=== PATIENT | female | born 1985 | race Caucasian/White ===

== ENCOUNTER 2017-10-01 11:34 | Emergency (ER) | payer OTHER ==
[2017-10-01 12:24] LABS: Urine Blood NEGATIVE (NEG); Urine Glucose NEGATIVE (NEG); Urine Protein NEGATIVE (NEG); Urine Specific Gravity 1.025 (1.005-1.030)
[2017-10-01] MEDS ORDERED: LORazepam 2 MG/ML VIAL ONE (13:11)
[2017-10-01 13:23] LABS: Absolute Lymphocytes (CBC) 1.7 K/uL (0.7-4.9); Absolute Monocytes 0.4 K/uL (0.1-1.3); Absolute Neutrophil 3.7 K/uL (1.8-8.0); Basophils % 0.5 % (0-1.3); Hematocrit 38.7 % (36.0-45.0); Lymphocytes % 28.9 % (15.3-44.8); MCH 29.6 pg (27.0-35.0); MPV 7.1 fL (7.6-11.3); Monocytes % 6.6 % (3.3-12.3); RBC Red Blood Cell Count 4.35 M/uL (3.86-4.86)
--- NOTE | 2017-10-01 13:29 | RAD REPORT ---
EXAM DESCRIPTION: CT - Head Brain Wo Cont - 10/01/2017 1:18 pm CLINICAL HISTORY: Headache, dizziness, intermittent vision loss, history of seizures COMPARISON: CT head June 2012 TECHNIQUE: Axial 5 mm thick images of the head were obtained without IV contrast. All CT scans are performed using dose optimization technique as appropriate and may include automated exposure control or mA/KV adjustment according to patient size. FINDINGS: No intracranial hemorrhage, mass, edema or shift of mid-line structures. No acute infarcti on changes seen. No abnormal extra-axial fluid collections. Ventricles are normal. Intracranial findi ngs are similar to comparison. Mastoid air cells and visualized portions of the paranasal sinuses are clear. No acute bony findings. IMPRESSION: Negative CT head examination for acute finding. No significant change from 2012.
[2017-10-01 13:32] LABS: Protime INR 0.9
[2017-10-01 13:43] LABS: Bicarbonate 24 mEq/L (21-31); Glucose Level 89 mg/dL (65-120); Potassium 3.8 mEq/L (3.6-5.0); Sodium Level 136 mEq/L (135-145)
[2017-10-01 13:48] LABS: ALT/SGPT 30 IU/L (10-60); AST/SGOT 23 IU/L (10-42); Albumin 3.6 g/dL (3.2-5.5); Alkaline Phosphatase 91 IU/L (42-121); BUN Blood Urea Nitrogen 12 mg/dL (6-20); Bilirubin Total < 0.2 mg/dL (0.3-1.2); CKMB Creatine Kinase MB 1.7 ng/ml (0.3-4.0); Creatine Phosphokinase 50 IU/L (22-269); Magnesium 1.9 mg/dL (1.8-2.5); Protein, Total 7.1 g/dL (6.0-8.3)
[2017-10-01 13:50] LABS: Bilirubin Direct < 0.1 mg/dL (0-0.2); C-Reactive Protein 8.8 mg/L (<10.0)
--- NOTE | 2017-10-01 13:59 | RAD REPORT ---
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 Axial DWI and ADC mapping sequences were also obtained along with coronal heavily T2-w eighted images. FINDINGS: No intracranial hemorrhage, mass or acute infarction. There is no edema or shift of midlin e structures. No cortical contusion or shear injury. Ventricles are normal. Rubi-matter/white matter junction is preserved. Signal voids are seen as a normal finding in the major intracranial vessels. No globe or orbital content abnormality identifiable. Frontal scalp hematoma seen in July has resolv ed. Mastoid air cells and paranasal sinuses are clear. IMPRESSION: Negative noncontrast MRI of the brain for acute finding. No significant or suspicious change from the July MRI study.
[2017-10-01 14:04] LABS: Barbiturates NEGATIVE; Benzodiazepines NEGATIVE; Cocaine NEGATIVE; METHAMPHETAM NEGATIVE (NEGATIVE); Opiates NEGATIVE; Phencyclidine NEGATIVE; THC Cannibis NEGATIVE
[2017-10-01] MEDS ORDERED: NA CHLORIDE 0.9% 1,000 ML ONE (14:09)
[2017-10-01 14:13] LABS: Alcohol Serum/Plasma < 10 mg/dl
--- NOTE | 2017-10-01 14:19 | RAD REPORT ---
EXAM DESCRIPTION: RAD - Chest Single View - 10/01/2017 2:02 pm CLINICAL HISTORY: Headache, dizziness, intermittent visual changes, seizure COMPARISON: July 2017 TECHNIQUE: AP portable chest image was obtained 1347 hours . FINDINGS: The Heart and vasculature are normal. No measurable pleural effusion and no pneumothorax. No gross bony abnormality seen. No acute aortic findings suspected. IMPRESSION: No acute cardiopulmonary process.
--- NOTE | 2017-10-01 14:26 | ER ---
Nurse's Notes [facility] Name: Cece Bush Age: 31 yrs Sex: Female : 1985 Arrival Date: 10/01/2017 Time: 11:38 Bed 18 Private MD: None, None Diagnosis: Visual disturbances Presentation: 10/01 11:44 Presenting complaint: Patient states: Intermittent loss of vision, headache, and hb dizziness x 2 weeks. Hx seizures, head injury July 2017. Transition of care: patient was not received from another setting of care. Onset of symptoms is unknown. Care prior to arrival: None. 11:44 Method Of Arrival: Ambulatory hb 11:44 Acuity: YAAKOV 3 hb 14:30 Risk Assessment: Do you want to hurt yourself or someone else? Patient reports no ch desire to harm self or others. Initial Sepsis Screen: Does the patient meet any 2 criteria? No. Patient's initial sepsis screen is negative. Does the patient have a suspected source of infection? No. Patient's initial sepsis screen is negative. Triage Assessment: 14:30 General: Appears in no apparent distress. comfortable, Behavior is calm, cooperative, ch appropriate for age. Historical: - Allergies: 11:48 Morphine; hb 11:48 tramadol; hb - Home Meds: 11:48 Suboxone [Active]; unknown seizure medication [Active]; hb - PMHx: 11:48 Depression; PTSD; Seizures; hb - PSHx: 11:48 Unable to obtain; L femur; hb - Immunization history:: Adult Immunizations up to date. - Social history:: Smoking status: Patient uses tobacco products, smokes one pack cigarettes per day. - Ebola Screening: : No symptoms or risks identified at this time. - Family history:: pertinent for. Screenin:21 Abuse screen: Denies threats or abuse. Denies injuries from another. Nutritional ch screening: No deficits noted. Tuberculosis screening: No symptoms or risk factors identified. Fall Risk None identified. Assessment: 13:21 General: Appears in no apparent distress. comfortable, Behavior is calm, cooperative, ch appropriate for age, pt transported to MRI. will do a comprehensive assessment upon return . Pain: Denies pain. Neuro: No deficits noted. Level of Consciousness is awake, alert, obeys commands, Oriented to person, place, time, situation, pt reports intermittant blackness and black spot in her vision . Respiratory: Airway is patent Respiratory effort is even, unlabored. Derm: Skin is pink, warm \T\ dry. 14:27 Reassessment: Patient appears in no apparent distress at this time. Patient and/or ss family updated on plan of care and expected duration. Pain level reassessed. Patient is alert, oriented x 3, equal unlabored respirations, skin warm/dry/pink. Respiratory: No deficits noted. Airway is patent Respiratory effort is even, unlabored. GI: No signs and/or symptoms were reported involving the gastrointestinal system. : No signs and/or symptoms were reported regarding the genitourinary system. Musculoskeletal: No signs and/or symptoms reported regarding the musculoskeletal system. Circulation, motion, and sensation intact. Vital Signs: 11:48 BP 135 / 97; Pulse 100; Resp 16; Temp 98.2; Pulse Ox 97% on R/A; Weight 77.11 kg; hb Height 5 ft. 2 in. (157.48 cm); Pain 4/10; 14:27 BP 111 / 72; Pulse 72; Resp 14; Temp 98.6; Pulse Ox 97% on R/A; Pain 0/10; ss 11:48 Body Mass Index 31.09 (77.11 kg, 157.48 cm) hb ED Course: 11:38 Patient arrived in ED. sb2 11:38 None, None is Private Physician. sb2 11:47 Triage completed. hb 11:49 Arm band placed on left wrist. hb 11:52 Margot Trevino, RN is Primary Nurse. ch 12:08 Urine collected: clean catch specimen, clear. dh3 12:21 Jad Duran MD is Attending Physician. jose 13:10 Radiology exam delayed due to PT GOING TO MRI. mh1 13:16 CT completed. Patient tolerated procedure well. Patient moved to CT via wheelchair. sj Patient moved to MRI Patient moved back from CT. 13:17 CT Head Brain wo Cont In Process Unspecified. EDMS 13:21 Patient has correct armband on for positive identification. Placed in gown. Bed in low ch position. Call light in reach. Side rails up X 1. Adult w/ patient. clinical research monitor on. Pulse ox on. NIBP on. 13:21 No provider procedures requiring assistance completed. Inserted saline lock: 20 gauge ch in right forearm, using aseptic technique. Blood collected. 13:22 Brain Wo Cont MRI In Process Unspecified. EDMS 13:35 MRI completed. Patient tolerated well. em2 13:38 Patient moved to radiology via wheelchair. ka 13:51 X-ray completed. Patient tolerated procedure well. Patient moved to radiology via mh1 wheelchair. Patient moved back from radiology. 13:53 XRAY Chest (1 view) In Process Unspecified. EDAL 14:25 Mickey Willard MD is Referral Physician. [facility] 14:25 Naveen Contreras MD is Referral Physician. [facility] 19:31 IV discontinued, intact, bleeding controlled, No redness/swelling at site. Pressure ch dressing applied. Administered Medications: 13:10 Drug: Ativan 1 mg Route: IVP; Site: right forearm; 14:24 Follow up: Response: No adverse reaction; Marked relief of symptoms 14:00 Drug: NS 0.9% 1000 ml Route: IV; Rate: 1 bolus; Site: right forearm; Outcome: 14:25 Discharge ordered by . [facility] 14:50 Discharged to home ambulatory, with family. 14:50 Condition: stable 14:50 Discharge instructions given to patient, family, Instructed on discharge instructions, follow up and referral plans. Demonstrated understanding of instructions, follow-up care. 14:55 Patient left the ED. Signatures: Dispatcher [employer] Margot Myles, RN Jad Wilkes ch, MD MD cha Harvey, Martha mh1 Berenice Aguayo Shelby, RN RN Adam Baldwin em2 Estefanía Solis Heather, RN RN hb Herrera, Deanna 3 Darcy Levi 2
--- NOTE | 2017-10-01 14:26 | EDPHYS ---
Physician Documentation [facility] Name: Cece Bush Age: 31 yrs Sex: Female : 1985 Arrival Date: 10/01/2017 Time: 11:38 Bed 18 Private MD: None, None ED Physician Jad Duran HPI: 10/01 12:54 This 31 yrs old Female presents to ER via Ambulatory with complaints of jose Losing Eyesight. 12:54 The patient is experiencing blurred vision, decreased vision. Onset: The jose symptoms/episode began/occurred 1 month(s) ago. Duration: the symptoms are intermittent. Aggravated by nothing. Alleviated by nothing. Associated signs and symptoms: Pertinent positives: None. Pertinent negatives: None. Severity of symptoms: At their worst the symptoms were moderate in the emergency department the symptoms are unchanged. Historical: - Allergies: 11:48 Morphine; hb 11:48 tramadol; hb - Home Meds: 11:48 Suboxone [Active]; unknown seizure medication [Active]; hb - PMHx: 11:48 Depression; PTSD; Seizures; hb - PSHx: 11:48 Unable to obtain; L femur; hb - Immunization history:: Adult Immunizations up to date. - Social history:: Smoking status: Patient uses tobacco products, smokes one pack cigarettes per day. - Ebola Screening: : No symptoms or risks identified at this time. - Family history:: pertinent for. ROS: 12:54 Constitutional: Negative for fever, chills, and weight loss, ENT: Negative for injury, jose pain, and discharge, Neck: Negative for injury, pain, and swelling, Cardiovascular: Negative for chest pain, palpitations, and edema, Respiratory: Negative for shortness of breath, cough, wheezing, and pleuritic chest pain, Abdomen/GI: Negative for abdominal pain, nausea, vomiting, diarrhea, and constipation, Back: Negative for injury and pain, : Negative for injury, bleeding, discharge, and swelling, MS/Extremity: Negative for injury and deformity, Skin: Negative for injury, rash, and discoloration, Neuro: Negative for headache, weakness, numbness, tingling, and seizure, Psych: Negative for depression, anxiety, suicide ideation, homicidal ideation, and hallucinations, Allergy/Immunology: Negative for hives, rash, and allergies, Endocrine: Negative for neck swelling, polydipsia, polyuria, polyphagia, and marked weight changes, Hematologic/Lymphatic: Negative for swollen nodes, abnormal bleeding, and unusual bruising. 12:54 Eyes: Positive for vision loss, visual disturbance. Exam: 12:54 Constitutional: This is a well developed, well nourished patient who is awake, alert, jose and in no acute distress. Head/Face: Normocephalic, atraumatic. Eyes: Pupils equal round and reactive to light, extra-ocular motions intact. Lids and lashes normal. Conjunctiva and sclera are non-icteric and not injected. Cornea within normal limits. Periorbital areas with no swelling, redness, or edema. ENT: Nares patent. No nasal discharge, no septal abnormalities noted. Tympanic membranes are normal and external auditory canals are clear. Oropharynx with no redness, swelling, or masses, exudates, or evidence of obstruction, uvula midline. Mucous membranes moist. Neck: Trachea midline, no thyromegaly or masses palpated, and no cervical lymphadenopathy. Supple, full range of motion without nuchal rigidity, or vertebral point tenderness. No Meningismus. Chest/axilla: Normal chest wall appearance and motion. Nontender with no deformity. No lesions are appreciated. Cardiovascular: Regular rate and rhythm with a normal S1 and S2. No gallops, murmurs, or rubs. Normal PMI, no JVD. No pulse deficits. Respiratory: Lungs have equal breath sounds bilaterally, clear to auscultation and percussion. No rales, rhonchi or wheezes noted. No increased work of breathing, no retractions or nasal flaring. Abdomen/GI: Soft, non-tender, with normal bowel sounds. No distension or tympany. No guarding or rebound. No evidence of tenderness throughout. Back: No spinal tenderness. No costovertebral tenderness. Full range of motion. Skin: Warm, dry with normal turgor. Normal color with no rashes, no lesions, and no evidence of cellulitis. MS/ Extremity: Pulses equal, no cyanosis. Neurovascular intact. Full, normal range of motion. Neuro: Awake and alert, GCS 15, oriented to person, place, time, and situation. Cranial nerves II-XII grossly intact. Motor strength 5/5 in all extremities. Sensory grossly intact. Cerebellar exam normal. Normal gait. Psych: Awake, alert, with orientation to person, place and time. Behavior, mood, and affect are within normal limits. Vital Signs: 11:48 BP 135 / 97; Pulse 100; Resp 16; Temp 98.2; Pulse Ox 97% on R/A; Weight 77.11 kg; hb Height 5 ft. 2 in. (157.48 cm); Pain 4/10; 14:27 BP 111 / 72; Pulse 72; Resp 14; Temp 98.6; Pulse Ox 97% on R/A; Pain 0/10; ss 11:48 Body Mass Index 31.09 (77.11 kg, 157.48 cm) hb MDM: 12:22 Patient medically screened. [facility] 12:56 Data reviewed: vital signs, nurses notes, lab test result(s), EKG, radiologic studies, [facility] CT scan, MRI, plain films. 10/01 12:12 Order name: Urine Dipstick--Ancillary (enter results); Complete Time: 12:50 ag 10/01 12:12 Order name: Urine --Ancillary (enter results); Complete Time: 12:50 ag 10/01 12:52 Order name: Basic Metabolic Panel; Complete Time: 14:24 [facility] 10/01 12:52 Order name: BNP; Complete Time: 14:24 [facility] 10/01 12:52 Order name: CBC with Diff; Complete Time: 14:24 [facility] 10/01 12:52 Order name: Ckmb; Complete Time: 14:24 [facility] 10/01 12:52 Order name: CPK; Complete Time: 14:24 [facility] 10/01 12:52 Order name: LFT's; Complete Time: 14:24 [facility] 10/01 12:52 Order name: Magnesium; Complete Time: 14:24 [facility] 10/01 12:52 Order name: PT-INR; Complete Time: 14:24 [facility] 10/01 12:52 Order name: Ptt, Activated; Complete Time: 14:24 [facility] 10/01 12:52 Order name: Troponin (emerg Dept Use Only); Complete Time: 14:24 [facility] 10/01 12:52 Order name: Sed Rate; Complete Time: 14:24 [facility] 10/01 12:52 Order name: CRP; Complete Time: 14:24 [facility] 10/01 12:52 Order name: XRAY Chest (1 view); Complete Time: 14:24 [facility] 10/01 12:52 Order name: EKG; Complete Time: 12:53 [facility] 10/01 12:52 Order name: Cardiac monitoring; Complete Time: 14:24 [facility] 10/01 12:52 Order name: EKG - Nurse/Tech; Complete Time: 13:21 [facility] 10/01 12:52 Order name: IV Saline Lock; Complete Time: 13:21 [facility] 10/01 12:52 Order name: Labs collected and sent; Complete Time: 13:21 [facility] 10/01 12:52 Order name: O2 Per Protocol; Complete Time: 13: [facility] 10/01 12:52 Order name: O2 Sat Monitoring; Complete Time: 13:21 [facility] 10/01 12:52 Order name: CT Head Brain wo Cont; Complete Time: 14:24 [facility] 10/01 12:52 Order name: Brain Wo Cont MRI; Complete Time: 14:24 [facility] 10/01 12:53 Order name: Acetaminophen; Complete Time: 14:24 [facility] 10/01 12:53 Order name: ETOH Level; Complete Time: 14:24 [facility] 10/01 12:53 Order name: Salicylate; Complete Time: 14:24 [facility] 10/01 12:53 Order name: Urine Drug Screen; Complete Time: 14:24 [facility] 10/01 12:52 Order name: Urine Dipstick-Ancillary (obtain specimen); Complete Time: 14:24 [facility] Administered Medications: 13:10 Drug: Ativan 1 mg Route: IVP; Site: right forearm; 14:24 Follow up: Response: No adverse reaction; Marked relief of symptoms 14:00 Drug: NS 0.9% 1000 ml Route: IV; Rate: 1 bolus; Site: right forearm; Disposition: 10/01/17 14:25 Discharged to Home. Impression: Visual disturbances. - Condition is Stable. - Discharge Instructions: Eye - Blurred Vision, Visual Disturbances. - Work release form, Medication Reconciliation Form, Thank You Letter, Antibiotic Education, Prescription Opioid Use form. - Follow up: Private Physician; When: 2 - 3 days; Reason: Recheck today's complaints, Continuance of care, Re-evaluation by your physician. Follow up: Mickey Willard; When: 2 - 3 days; Reason: Recheck today's complaints, Re-evaluation by your physician. Follow up: Naveen Contreras; When: 48 Hours; Reason: Recheck today's complaints, Continuance of care, Re-evaluation by your physician. - Problem is new. - Symptoms have improved. Signatures: Dispatcher [employer] EDMargot Johnson, RN RN Jad Ibrahim MD MD cha Smirch, Shelby, RN RN Claire Jama RN RN Corrections: (The following items were deleted from the chart) 14:55 14:25 10/01/2017 14:25 Discharged to Home. Impression: Visual disturbances. Condition ch is Stable. Discharge Instructions: Eye - Blurred Vision, Visual Disturbances. Forms are Medication Reconciliation Form, Thank You Letter, Antibiotic Education, Prescription Opioid Use. Follow up: Private Physician; When: 2 - 3 days; Reason: Recheck today's complaints, Continuance of care, Re-evaluation by your physician. Follow up: Mickey Willard; When: 2 - 3 days; Reason: Recheck today's complaints, Re-evaluation by your physician. Follow up: Naveen Contreras; When: 48 Hours; Reason: Recheck today's complaints, Continuance of care, Re-evaluation by your physician. Problem is new. Symptoms have improved. jose
[2017-10-01 14:59] VITALS: O2SAT 97
--- NOTE | 2017-10-01 14:59 | EKG ---
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
[2017-10-01 15:00] VITALS: BP 111/72; TEMP 98.6
== END 2017-10-01 14:55 | disposition home or self-care (01) ==
LOC: ER 11:34
DX: H53.9 Unspecified visual disturbance (principal); F32.9 Major depressive disorder, single episode, unspecified; F43.10 Post-traumatic stress disorder, unspecified; G40.909 Epilepsy, unspecified, not intractable, without status epilepticus; Z88.5 Allergy status to narcotic agent; Z88.6 Allergy status to analgesic agent
CPT/HCPCS: 36415; 70450; 70551; 71045; 80048; 80076; 80307; 80320; 80329; 81003; 81025; 82550; 82553; 83735; 83880; 84484; 85025; 85610; 85652; 85730; 86140; 93005; 96374; 99285; J7030

== ENCOUNTER 2018-11-16 15:16 | Emergency (ER) | payer OTHER ==
--- NOTE | 2018-11-16 15:37 | ER ---
Nurse's Notes [facility] Name: Cece Bush Age: 33 yrs Sex: Female : 1985 Arrival Date: 11/16/2018 Time: 15:19 Bed 11 Private MD: Diagnosis: Anxiety disorder, unspecified;Patient's unintentional underdosing of medication regimen for other reason Presentation: 11/16 15:23 Presenting complaint: Patient states: I am out of my effexor 75mg daily, its coming in la1 the mail and should be here next week but I have not had it since and I am starting to feel bad. Transition of care: patient was not received from another setting of care. Onset of symptoms was November 16, 2018. Risk Assessment: Do you want to hurt yourself or someone else? Patient reports no desire to harm self or others. Initial Sepsis Screen: Does the patient meet any 2 criteria? No. Patient's initial sepsis screen is negative. Does the patient have a suspected source of infection? No. Patient's initial sepsis screen is negative. Care prior to arrival: None. 15:23 Method Of Arrival: Ambulatory la1 15:23 Acuity: YAAKOV 5 la1 SNUBBER: 15:22 LMP 11/11/2018 la1 Historical: - Allergies: 15:22 Morphine; la1 15:22 tramadol; la1 - PMHx: 15:22 Depression; PTSD; Seizures; la1 - Immunization history:: Adult Immunizations up to date. - Social history:: Smoking status: Patient/guardian denies using tobacco. - Ebola Screening: : No symptoms or risks identified at this time. Screenin:25 Abuse screen: Denies threats or abuse. Nutritional screening: No deficits noted. la1 Tuberculosis screening: No symptoms or risk factors identified. Fall Risk None identified. Assessment: 15:24 Reassessment: Patient is alert, oriented x 3, equal unlabored respirations, skin la1 warm/dry/pink. Pain: Denies pain. GI: No signs and/or symptoms were reported involving the gastrointestinal system. : No signs and/or symptoms were reported regarding the genitourinary system. Vital Signs: 15:22 BP 140 / 93; Pulse 120; Resp 18; Temp 97.6; Pulse Ox 98% on R/A; Weight 74.84 kg; la1 Height 5 ft. 2 in. (157.48 cm); 15:22 Body Mass Index 30.18 (74.84 kg, 157.48 cm) la1 ED Course: 15:19 Patient arrived in ED. as 15:23 Arm band placed on left wrist. la1 15:24 Triage completed. la1 15:24 Emanuel Zapata, RN is Primary Nurse. la1 15:25 Call light in reach. la1 15:25 No provider procedures requiring assistance completed. Patient did not have IV access la1 during this emergency room visit. 15:28 [facility]C [facility] snw 15:28 Rafal Bangura MD is Attending Physician. snw Administered Medications: 15:39 Drug: Ativan 2 mg Route: PO; iw 15:40 Follow up: Response: Medication administered at discharge. iw Outcome: 15:37 Discharge ordered by MD. snw 15:40 Discharged to home ambulatory. iw 15:40 Condition: stable 15:40 Discharge instructions given to patient, Instructed on discharge instructions, follow up and referral plans. medication usage, Demonstrated understanding of instructions, follow-up care, medications, Prescriptions given X 1. 15:40 Patient left the ED. iw Signatures: Coco Muñoz FNP-C FNP-Yolanda Villareal Irene, RN RN iw Emanuel Zapata RN RN la1
--- NOTE | 2018-11-16 15:37 | EDPHYS ---
Physician Documentation [facility] Name: Cece Bush Age: 33 yrs Sex: Female : 1985 Arrival Date: 11/16/2018 Time: 15:19 Bed 11 Private MD: ED Physician Rafal Bangura HPI: 11/16 15:46 This 33 yrs old Female presents to ER via Ambulatory with complaints of snw InQuicker, Medication Refill. 15:46 The patient presents to the emergency department requesting refill(s) for: Effexor. The snw patient chronically suffers from anxiety, PTSD, seizures. The patient has not experienced similar symptoms in the past. The patient has been recently seen by a physician: medications are coming in the mail but pt has been out x 4 days and is afraid she may have seizure activity if she does not get her medications. 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 - Social history:: Smoking status: Patient/guardian denies using tobacco. - Ebola Screening: : No symptoms or risks identified at this time. ROS: 15:46 Eyes: Negative for injury, pain, redness, and discharge, ENT: Negative for injury, snw pain, and discharge, Neck: Negative for injury, pain, and swelling, Cardiovascular: Negative for chest pain, palpitations, and edema, Respiratory: Negative for shortness of breath, cough, wheezing, and pleuritic chest pain, Abdomen/GI: Negative for abdominal pain, nausea, vomiting, diarrhea, and constipation, Back: Negative for injury and pain, : Negative for injury, bleeding, discharge, and swelling, MS/Extremity: Negative for injury and deformity, Skin: Negative for injury, rash, and discoloration, Neuro: Negative for headache, weakness, numbness, tingling, and seizure. 15:46 Constitutional: Positive for anxiety. 15:46 Psych: Positive for anxiety. Exam: 15:45 Head/Face: Normocephalic, atraumatic. Eyes: Pupils equal round and reactive to light, snw extra-ocular motions intact. Lids and lashes normal. Conjunctiva and sclera are non-icteric and not injected. Cornea within normal limits. Periorbital areas with no swelling, redness, or edema. ENT: Nares patent. No nasal discharge, no septal abnormalities noted. Tympanic membranes are normal and external auditory canals are clear. Oropharynx with no redness, swelling, or masses, exudates, or evidence of obstruction, uvula midline. Mucous membranes moist. Neck: Trachea midline, no thyromegaly or masses palpated, and no cervical lymphadenopathy. Supple, full range of motion without nuchal rigidity, or vertebral point tenderness. No Meningismus. Chest/axilla: Normal chest wall appearance and motion. Nontender with no deformity. No lesions are appreciated. 15:45 Respiratory: Lungs have equal breath sounds bilaterally, clear to auscultation and percussion. No rales, rhonchi or wheezes noted. No increased work of breathing, no retractions or nasal flaring. Abdomen/GI: Soft, non-tender, with normal bowel sounds. No distension or tympany. No guarding or rebound. No evidence of tenderness throughout. Back: No spinal tenderness. No costovertebral tenderness. Full range of motion. Skin: Warm, dry with normal turgor. Normal color with no rashes, no lesions, and no evidence of cellulitis. MS/ Extremity: Pulses equal, no cyanosis. Neurovascular intact. Full, normal range of motion. Neuro: Awake and alert, GCS 15, oriented to person, place, time, and situation. Cranial nerves II-XII grossly intact. Motor strength 5/5 in all extremities. Sensory grossly intact. Cerebellar exam normal. Normal gait. 15:45 Constitutional: The patient appears alert, awake, anxious, mildly tremulous 15:45 Cardiovascular: Rate: tachycardic, Rhythm: regular, Heart sounds: normal. 15:45 Psych: Behavior/mood is pleasant, cooperative, anxious, Affect is animated, Oriented to person, place, time, Patient has no thoughts/intents to harm self or others. Vital Signs: 15:22 BP 140 / 93; Pulse 120; Resp 18; Temp 97.6; Pulse Ox 98% on R/A; Weight 74.84 kg; la1 Height 5 ft. 2 in. (157.48 cm); 15:22 Body Mass Index 30.18 (74.84 kg, 157.48 cm) la1 MDM: 15:28 Patient medically screened. snw 15:44 Data reviewed: vital signs, nurses notes. Data interpreted: Pulse oximetry: on room air snw is 98 %. Interpretation: normal. Counseling: I had a detailed discussion with the patient and/or guardian regarding: the historical points, exam findings, and any diagnostic results supporting the discharge/admit diagnosis, the presence of at least one elevated blood pressure reading (>120/80) during this emergency department visit, the need for outpatient follow up, to return to the emergency department if symptoms worsen or persist or if there are any questions or concerns that arise at home. Response to treatment: pt agrees to tx plan and f/u instructions. Special discussion: I have referred the patient to see his PCP for further evaluation of high blood pressure. Based on the history and exam findings, there is no indication for further emergent testing or inpatient evaluation. I discussed with the patient/guardian the need to see the primary care provider for further evaluation of the symptoms. Administered Medications: 15:39 Drug: Ativan 2 mg Route: PO; iw 15:40 Follow up: Response: Medication administered at discharge. iw Disposition: 15:54 Co-signature as Attending Physician, Rafal Bangura MD. rn Disposition: 11/16/18 15:37 Discharged to Home. Impression: Anxiety disorder, unspecified, Patient's unintentional underdosing of medication regimen for other reason. - Condition is Stable. - Discharge Instructions: Medicine Refill at the Emergency Department, Generalized Anxiety Disorder. - Prescriptions for Effexor XR 75 mg Oral capsule,extended release 24hr - take 1 capsule by ORAL route once daily with food; 30 capsule. - Medication Reconciliation Form, Thank You Letter, Antibiotic Education, Prescription Opioid Use form. - Follow up: Private Physician; When: 2 - 3 days; Reason: Recheck today's complaints, Continuance of care, Re-evaluation by your physician. Follow up: Emergency Department; When: As needed; Reason: Worsening of condition. Signatures: Coco Muñoz, MUSA-C 4TH GRADE MATH TEACHER-Csnw Ellen Mccall, RN HIRAL iw Rafal Bangura MD MD rn Attema, Lee, RN RN la1 Corrections: (The following items were deleted from the chart) 15:40 15:37 11/16/2018 15:37 Discharged to Home. Impression: Anxiety disorder, unspecified; iw Patient's unintentional underdosing of medication regimen for other reason. Condition is Stable. Forms are Medication Reconciliation Form, Thank You Letter, Antibiotic Education, Prescription Opioid Use. Follow up: Private Physician; When: 2 - 3 days; Reason: Recheck today's complaints, Continuance of care, Re-evaluation by your physician. Follow up: Emergency Department; When: As needed; Reason: Worsening of condition. snw
[2018-11-16] MEDS ORDERED: LORAZEPAM 1 MG TABLET ONE (15:55)
[2018-11-16 16:07] VITALS: BP 140/93; TEMP 97.6; O2SAT 98
== END 2018-11-16 15:40 | disposition home or self-care (01) ==
LOC: ER 15:16
DX: F41.9 Anxiety disorder, unspecified (principal); F43.10 Post-traumatic stress disorder, unspecified; R56.9 Unspecified convulsions; Z88.6 Allergy status to analgesic agent; Z91.138 Patient's unintentional underdosing of medication regimen for other reason; Z76.0 Encounter for issue of repeat prescription
CPT/HCPCS: 99283

== ENCOUNTER → 2023-05-13 | Emergency (ER) | payer OTHER ==
[~2023-05-13] MED LIST: ACETAMINOPHEN 500 MG TAB ONE; LORazepam 2 MG/ML VIAL ONE; NA CHLORIDE 0.9% 1,000 ML ONE; levETIRAcetam 500 MG TAB ONE
--- NOTE | 2023-05-13 14:50 | RAD REPORT ---
EXAM DESCRIPTION: CT - Head Brain Wo Cont - 05/13/2023 2:07 pm CLINICAL HISTORY: SEIZURE COMPARISON: Head Brain Wo Cont dated 10/01/2017; HEAD BRAIN W O CONTRAST dated 06/23/2012 TECHNIQUE: Noncontrast head CT images were obtained without IV contrast. Multiplanar reformats were generated and reviewed. All CT scans are performed using dose optimization technique as appropriate and may include automated exposure control or mA/KV adjustment according to patient size. FINDINGS: No intracranial hemorrhage, mass, or edema. Midline structures are unremarkable. Normal ventricular caliber for age. Rubi-white matter differentiation is preserved, without evidence of acute infarct. No abnormal extra- axial fluid collections. Mastoid air cells and visualized portions of the paranasal sinuses are clear. No acute bony findings. IMPRESSION: No evidence of an acute intracranial process.
[2023-05-13 16:03] LABS: Absolute Lymphocytes (CBC) 0.9 K/uL (0.7-4.9); Hematocrit 39.5 % (36.0-45.0); Lymphocytes % 9.7 % (15.3-44.8); MPV 6.7 fL (7.6-11.3); Platelets 249 thou/uL (152-406); RBC Red Blood Cell Count 4.12 M/uL (3.86-4.86)
[2023-05-13 16:20] LABS: Bilirubin Total 0.2 mg/dL (0.2-1.0); Potassium 3.6 mEq/L (3.5-5.1); Protein, Total 6.2 g/dL (6.4-8.2)
--- NOTE | 2023-05-13 17:26 | ER ---
Nurse's Notes [facility] Name: Cece Bush Age: 37 yrs Sex: Female : 1985 Arrival Date: 05/13/2023 Time: 13:43 Bed 9 Private MD: Diagnosis: Other seizures;Tachycardia, unspecified Presentation: 05/13 14:03 Chief complaint: Patient states: Pt arrived by EMS after having a seizure lasting tl4 approx 4 min at work. Pt has not had a seizure for over 1 year. Pt has no recollection of events leading up to seizure activity. Pt currently c/o generalized headache. Coronavirus screen: Vaccine status: Patient reports being unvaccinated. At this time, the client does not indicate any symptoms associated with coronavirus-19. Ebola Screen: Patient negative for fever greater than or equal to 101.5 degrees Fahrenheit, and additional compatible Ebola Virus Disease symptoms Patient denies exposure to infectious person. Patient denies travel to an Ebola-affected area in the 21 days before illness onset. No symptoms or risks identified at this time. Initial Sepsis Screen: Does the patient meet any 2 criteria? No. Patient's initial sepsis screen is negative. Does the patient have a suspected source of infection? No. Patient's initial sepsis screen is negative. Risk Assessment: Do you want to hurt yourself or someone else? Patient reports no desire to harm self or others. Onset of symptoms was May 13, 2023 at 13:15. 14:03 Method Of Arrival: EMS: [facility] tl4 14:03 Acuity: YAAKOV 3 tl4 Triage Assessment: 14:10 General: Appears in no apparent distress. Behavior is cooperative, flat. Pain: tl4 Complains of pain in headache. EENT: No deficits noted. Neuro: Reports headache in entire Seizure activity reported prior to arrival. Seizure lasted approximately 4 minutes. Patient is post-ictal at this time. Cardiovascular: No deficits noted. Respiratory: No deficits noted. GI: No deficits noted. : No deficits noted. Injury Description: Abrasion sustained to left side of head. 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 - Social history:: Smoking status: Patient reports the use of cigarette tobacco products, smokes one pack cigarettes per day. Screenin:14 [facility] ED Fall Risk Assessment (Adult) History of falling in the last 3 months, tl4 including since admission No falls in past 3 months (0 pts) Confusion or Disorientation Yes (5 pts) Intoxicated or Sedated No (0 pts) Impaired Gait No (0 pts) Mobility Assist Device Used No (0 pt) Altered Elimination No (0 pt) Score/Fall Risk Level 3 or more points = High Risk Oriented to surroundings, Maintained a safe environment, Educated pt \T\ family on fall prevention, incl call for assistance when getting out of bed, Assessed \T\ reinforced patient's understanding of fall precautions, Provided non-skid footwear, Hourly rounding (assess needs \T\ fall precautionary measures) done. Abuse screen: Denies threats or abuse. Denies injuries from another. Nutritional screening: No deficits noted. Tuberculosis screening: No symptoms or risk factors identified. Assessment: 14:14 Reassessment: No changes from previously documented assessment. tl4 17:09 Reassessment: No changes from previously documented assessment. Patient and/or family tl4 updated on plan of care and expected duration. Pain level reassessed. Patient is alert, oriented x 3, equal unlabored respirations, skin warm/dry/pink. Vital Signs: 14:03 BP 141 / 97; Pulse 144; Resp 20; Temp 98.9(O); Pulse Ox 97% on R/A; Pain 8/10; tl4 14:57 Weight 74.84 kg; Height 5 ft. 2 in. ; tl4 15:07 BP 135 / 89; Pulse 143; Resp 18; Pulse Ox 97% on R/A; tl4 16:00 BP 131 / 98; Pulse 118; Resp 18; Pulse Ox 98% on R/A; Pain 5/10; tl4 16:00 BP 125 / 85; Pulse 115; Resp 18; Pulse Ox 96% on R/A; Pain 6/10; tl4 17:00 BP 126 / 73; Pulse 112; Resp 18; Pulse Ox 97% on R/A; tl4 18:05 BP 122 / 72; Pulse 108; Resp 16; Pulse Ox 99% on R/A; Pain 8/10; tl4 14:57 Body Mass Index 30.18 (74.84 kg, 157.48 cm) tl4 14:03 Pain Scale: Adult tl4 16:00 Pain Scale: Adult tl4 16:00 Pain Scale: Adult tl4 18:05 Pain Scale: Adult tl4 Vitals: 15:07 Cardiac Rhythm Assessment Regular Sinus tach. tl4 Meera Coma Score: 15:07 Eye Response: spontaneous(4). Motor Response: obeys commands(6). Verbal Response: tl4 oriented(5). Total: 15. 18:05 Eye Response: spontaneous(4). Motor Response: obeys commands(6). Verbal Response: tl4 oriented(5). Total: 15. ED Course: 13:48 Patient arrived in ED. ms3 13:48 Zhen Maria DO is Attending Physician. ms3 14:02 David Roblero is Primary Nurse. tl4 14:02 Maintain EMS IV. Dressing intact. Good blood return noted. Site clean \T\ dry. Gauge \T\ tl 4 site: 20g RAC. 14:07 Triage completed. tl4 14:09 CT Head Brain wo Cont In Process Unspecified. EDMS 14:13 Arm band placed on Patient placed in an exam room, on a stretcher. tl4 14:15 Patient has correct armband on for positive identification. Placed in gown. Bed in low tl4 position. Call light in reach. Side rails up X2. Adult w/ patient. Provided Education on: ED process. Door closed. Noise minimized. Lights dimmed. Warm blanket given. 14:16 No provider procedures requiring assistance completed. tl4 14:47 EKG done, by ED staff, reviewed by Zhen Maria DO. em1 14:57 CMP Sent. tl4 14:57 CBC with Diff Sent. tl4 15:55 CMP Sent. tl4 15:55 CBC with Diff Sent. tl4 17:23 Mickey Willard MD is Referral Physician. ms3 18:06 IV discontinued, intact, bleeding controlled, No redness/swelling at site. Pressure tl4 dressing applied. Administered Medications: 14:57 Drug: NS 0.9% IV 1000 ml IV at 1 bolus Per protocol; 1000 mL bolus Route: IV; Rate: 1 tl4 bolus; Site: right antecubital; Delivery: Primary tubing; 16:10 Follow up: Response: No adverse reaction; IV Status: Completed infusion; IV Intake: tl4 1000ml 15:46 Drug: Acetaminophen PO 1000 mg PO once Route: PO; tl4 16:10 Follow up: Response: Pain is decreased tl4 15:46 Drug: NS 0.9% IV 1000 ml IV at 1 bolus Per protocol; 1000 mL bolus Route: IV; Rate: 1 tl4 bolus; Site: right antecubital; 17:44 Follow up: Response: No adverse reaction; IV Status: Completed infusion; IV Intake: tl4 1000ml 16:10 Drug: Ativan IVP 1 mg IVP once Route: IVP; Infused Over: 2 mins; Site: right tl4 antecubital; 17:09 Follow up: Response: No adverse reaction tl4 17:01 Drug: Keppra PO 250 mg PO once Route: PO; tl4 17:44 Follow up: Response: No adverse reaction tl4 Medication: 14:15 VIS not applicable for this client. tl4 Intake: 16:10 IV: 1000ml; Total: 1000ml. tl4 17:44 IV: 1000ml; Total: 2000ml. tl4 Outcome: 17:25 Discharge ordered by MD. ms3 18:06 Discharged to home via wheelchair, with family, tl4 18:06 Condition: stable 18:06 Discharge instructions given to patient, family, Instructed on discharge instructions, follow up and referral plans. medication usage, Demonstrated understanding of instructions, follow-up care, medications, 18:06 Patient left the ED. tl4 Signatures: Dispatcher [employer] Addy Bright emZhen Joe DO DO ms3 David Roblero tl4 Corrections: (The following items were deleted from the chart) 15:09 15:07 BP 147 / 79; Pulse 77bpm; Resp 18bpm; Pulse Ox 97% RA; tl4 tl4
--- NOTE | 2023-05-13 17:26 | EDPHYS ---
Physician Documentation [facility] Name: Cece Bush Age: 37 yrs Sex: Female : 1985 Arrival Date: 05/13/2023 Time: 13:43 Bed 9 Private MD: ED Physician Zhen Maria HPI: 05/13 17:32 This 37 yrs old Female presents to ER via EMS with complaints of seizure. ms3 17:32 37-year-old female presents for seizure while at work. EMS notes patient had a seizure ms3 lasting approximately 3 to 4 minutes. EMS notes patient's blood pressure 156/97, blood glucose of 156, oxygen saturation 97% on room air. EMS administered Zofran and oxygen in route. EMS notes patient is postictal during transport. Patient denies pain. Patient denies any alleviating or inciting factors. Patient states she had 1 seizure years ago. CSW: 18:06 LMP 04/2023, unknown tl4 Historical: - Allergies: 14:08 Morphine; tl4 14:08 tramadol; tl4 - Home Meds: 14:08 Suboxone [Active]; venlafaxine oral [Active]; tl4 - PMHx: 14:08 Depression; PTSD; Seizures; tl4 - PSHx: 14:08 None; tl4 - Immunization history:: Adult Immunizations unknown. - Social history:: Smoking status: Patient reports the use of cigarette tobacco products, smokes one pack cigarettes per day. ROS: 17:32 Constitutional: Negative for fever, and chills. Cardiovascular: Negative for chest ms3 pain, and palpitations. Respiratory: Negative for shortness of breath, cough, wheezing, and pleuritic chest pain, Abdomen/GI: Negative for abdominal pain, nausea, vomiting, diarrhea, and constipation, MS/Extremity: Negative for injury and deformity, Skin: Negative for injury, rash, and discoloration, 17:32 Neuro: Positive for headache, seizure activity, 17:32 All other systems are negative, Exam: 17:32 Constitutional: This is a well developed, well nourished patient who is awake, alert, ms3 and in no acute distress. Head/Face: Normocephalic, atraumatic. Neck: Trachea midline, no cervical lymphadenopathy. Supple, full range of motion without nuchal rigidity, or vertebral point tenderness. No Meningismus. Chest/axilla: Normal chest wall appearance and motion. Nontender with no deformity. 17:32 ECG was reviewed by the Attending Physician. Vital Signs: 14:03 BP 141 / 97; Pulse 144; Resp 20; Temp 98.9(O); Pulse Ox 97% on R/A; Pain 8/10; tl4 14:57 Weight 74.84 kg; Height 5 ft. 2 in. ; tl4 15:07 BP 135 / 89; Pulse 143; Resp 18; Pulse Ox 97% on R/A; tl4 16:00 BP 131 / 98; Pulse 118; Resp 18; Pulse Ox 98% on R/A; Pain 5/10; tl4 16:00 BP 125 / 85; Pulse 115; Resp 18; Pulse Ox 96% on R/A; Pain 6/10; tl4 17:00 BP 126 / 73; Pulse 112; Resp 18; Pulse Ox 97% on R/A; tl4 18:05 BP 122 / 72; Pulse 108; Resp 16; Pulse Ox 99% on R/A; Pain 8/10; tl4 14:57 Body Mass Index 30.18 (74.84 kg, 157.48 cm) tl4 14:03 Pain Scale: Adult tl4 16:00 Pain Scale: Adult tl4 16:00 Pain Scale: Adult tl4 18:05 Pain Scale: Adult tl4 Hernandez Coma Score: 15:07 Eye Response: spontaneous(4). Motor Response: obeys commands(6). Verbal Response: tl4 oriented(5). Total: 15. 18:05 Eye Response: spontaneous(4). Motor Response: obeys commands(6). Verbal Response: tl4 oriented(5). Total: 15. MDM: 13:48 Patient medically screened. ms3 17:32 Differential diagnosis: cardiac arrhythmia, seizure, Electrolyte abnormality. Data ms3 reviewed: vital signs, nurses notes, lab test result(s), radiologic studies, and as a result, I will discharge patient. Management of patient was discussed with the following: Vascular Physician: Discussed case with Dr Willard. Start patient on 250 Keppra nightly. Follow up in clinic. I considered the following discharge prescriptions or medication management in the emergency department Medications were administered in the Emergency Department. See MAR. Independent interpretation of the following test(s) in the Emergency Department EKG: See my EKG interpretation above. Historians other than the Patient: EMS: BASF. Care significantly affected by the following chronic conditions: Depression, PTSD, Seizures. Counseling: I had a detailed discussion with the patient and/or guardian regarding the historical points, exam findings, and any diagnostic results supporting the discharge/admit diagnosis, lab results, radiology results, the need for outpatient follow up, to return to the emergency department if symptoms worsen or persist or if there are any questions or concerns that arise at home. ED course: Discussed with patient and her mother Dr. Willard's recommendations of Keppra 250 mg nightly. Patient to follow-up outpatient with Dr. Willard. Patient and her mother understand and agree with plan. All questions were answered. Return precautions discussed include worsening symptoms, altered mental status, vomiting, fevers, or any other concerns. On reevaluation patient is alert and oriented x 4, no apparent distress, nontoxic-appearing, speaking full sentences. 05/13 13:49 Order name: CBC with Diff; Complete Time: 16:21 ms3 05/13 13:49 Order name: CMP; Complete Time: 16:21 ms3 05/13 13:49 Order name: CT Head Brain wo Cont; Complete Time: 15:09 ms3 05/13 13:49 Order name: Seizure Precautions; Complete Time: 14:02 ms3 05/13 15:22 Order name: Labs - recollect needed: recollect green and lavender top; Complete Time: bd 15:55 EC:32 Rate is 148 beats/min. Rhythm is regular. QRS [place] is Normal. [place] interval is normal. ms3 QRS interval is normal. Clinical impression: Sinus tachycardia. Interpreted by me. Reviewed by me. Administered Medications: 14:57 Drug: NS 0.9% IV 1000 ml IV at 1 bolus Per protocol; 1000 mL bolus Route: IV; Rate: 1 tl4 bolus; Site: right antecubital; Delivery: Primary tubing; 16:10 Follow up: Response: No adverse reaction; IV Status: Completed infusion; IV Intake: tl4 1000ml 15:46 Drug: Acetaminophen PO 1000 mg PO once Route: PO; tl4 16:10 Follow up: Response: Pain is decreased tl4 15:46 Drug: NS 0.9% IV 1000 ml IV at 1 bolus Per protocol; 1000 mL bolus Route: IV; Rate: 1 tl4 bolus; Site: right antecubital; 17:44 Follow up: Response: No adverse reaction; IV Status: Completed infusion; IV Intake: tl4 1000ml 16:10 Drug: Ativan IVP 1 mg IVP once Route: IVP; Infused Over: 2 mins; Site: right tl4 antecubital; 17:09 Follow up: Response: No adverse reaction tl4 17:01 Drug: Keppra PO 250 mg PO once Route: PO; tl4 17:44 Follow up: Response: No adverse reaction tl4 Disposition Summary: 05/13/23 17:25 Discharge Ordered Notes: Location: Home ms3 Condition: Stable ms3 Diagnosis - Other seizures ms3 - Tachycardia, unspecified ms3 Followup: ms3 - With: Mickey Willard MD - When: 1 - 2 days - Reason: Recheck today's complaints Discharge Instructions: - Discharge Summary Sheet ms3 - Seizure, Adult ms3 Forms: - Medication Reconciliation Form ms3 - Thank You Letter ms3 - Antibiotic Education ms3 - Prescription Opioid Use ms3 - Patient Portal Instructions ms3 - Leadership Thank You Letter ms3 Prescriptions: - Keppra 250 mg Oral tablet - take 1 tablet ORAL route Every night; 20 tablet; Refills: 0, Product Selection ms3 Permitted Signatures: Dispatcher [employer] Marisela Montejo Marcus, DO DO ms3 David Roblero tl4
[2023-05-13 21:45] VITALS: TEMP 98.9
[2023-05-13 21:58] VITALS: BP 122/72; O2SAT 99
--- NOTE | 2023-05-14 17:12 | EKG ---
Test Date: 2023-05-13 Test Time: 14:39:40 Clinical Lab Scientist: DWAIN MEASUREMENT RESULTS: Intervals: Rate: 148 MD: 124 QRSD: 82 QT: 276 QTc: 433 [place]: P: 52 MD: 124 QRS: -12 T: 40 INTERPRETIVE STATEMENTS: Sinus tachycardia Low voltage QRS Borderline ECG Compared to ECG 10/01/2017 13:02:39 Low QRS voltage now present Sinus rhythm no longer present Electronically Signed On 05-14-23 17:10:28 CASSANDRA ARCHITECT by Goldy Abrams
== END ==
LOC: ER 13:43
DX: R56.9 Unspecified convulsions (principal); R00.0 Tachycardia, unspecified; Z88.5 Allergy status to narcotic agent
CPT/HCPCS: 96361; 93005; 85025; 36415; 80053; 70450; 96374; 99284; J7030 ×2

== ENCOUNTER → 2023-05-17 | Emergency (ER) | payer OTHER ==
[~2023-05-17] MED LIST changes: -ACETAMINOPHEN 500 MG TAB ONE; +DIPHENHYDRAMINE 50 MG/ML VIAL ONE; -LORazepam 2 MG/ML VIAL ONE; +METOCLOPRAMIDE 10 MG/2mL INJ ONE; -NA CHLORIDE 0.9% 1,000 ML ONE; +ONDANSETRON 4 MG/2 ML VIAL ONE; +dexAMETHasone 10 MG/ML VIAL ONE; -levETIRAcetam 500 MG TAB ONE
[2023-05-17 14:28] LABS: Absolute Lymphocytes (CBC) 1.5 K/uL (0.7-4.9); Hematocrit 42.4 % (36.0-45.0); Lymphocytes % 20.4 % (15.3-44.8); MCV 97.7 fL (80-100); MPV 6.7 fL (7.6-11.3); Platelets 272 thou/uL (152-406); RBC Red Blood Cell Count 4.34 M/uL (3.86-4.86)
--- NOTE | 2023-05-17 14:57 | RAD REPORT ---
EXAM DESCRIPTION: CT - [id number] - 05/17/2023 2:44 pm CLINICAL HISTORY: Trauma, head and neck injury. neck pain;Headache COMPARISON: Head C Spine Mpr Wo Con dated 07/09/2017; Head Brain Wo Cont dated 05/13/2023 TECHNIQUE: Axial 5 mm thick images of the head were obtained. Axial 2 mm thick images of the cervical spine were obtained with sagittal and coronal reconstruction images generated and reviewed. All CT scans are performed using dose optimization technique as appropriate and may include automated exposure control or mA/KV adjustment according to patient size. FINDINGS: CT HEAD WITHOUT CONTRAST: No acute hemorrhage, hydrocephalus or extra-axial collection is identified.No areas of brain edema or midline shift. The paranasal sinuses and mastoids are clear.The calvarium is intact. CT CERVICAL SPINE WITHOUT CONTRAST: No fracture or subluxation.No prevertebral soft tissues swelling is identified. IMPRESSION: No acute intracranial or cervical spine findings.
[2023-05-17 15:23] LABS: Protime INR 1.03
[2023-05-17 15:41] LABS: ALT/SGPT 31 U/L (13-56); AST/SGOT 16 U/L (15-37); Albumin 3.1 g/dL (3.4-5.0); Alkaline Phosphatase 69 U/L (45-117); BUN Blood Urea Nitrogen 7 mg/dL (7-18); Bicarbonate 26 mEq/L (21-32); Bilirubin Total 0.3 mg/dL (0.2-1.0); Glomerular Filtration Rate 99 ml/min (=/>90); Glucose Level 85 mg/dL (74-106); Potassium 3.5 mEq/L (3.5-5.1); Protein, Total 6.7 g/dL (6.4-8.2); Sodium Level 135 mEq/L (136-145)
[2023-05-17 15:42] LABS: Bilirubin Direct < 0.1 mg/dL (0-0.2); Bilirubin Indirect, Calculated ND mg/dL (0.2-0.8)
[2023-05-17 16:09] LABS: Specific Gravity 1.008 (1.005-1.030)
[2023-05-17 16:11] LABS: Specific Gravity 1.008 (1.005-1.030); Urine Bacteria <20 /HPF (<20); Urine Bilirubin NEGATIVE (Negative); Urine Blood Negative (Negative); Urine Clarity Turbid (Clear); Urine Color Colorless (Yellow); Urine Glucose NEGATIVE (Negative); Urine Mucus Slight /HPF (None Seen); Urine Protein NEGATIVE (Negative); Urine RBC None Seen /HPF (None Seen); Urine Urobilinogen Normal (Normal)
[2023-05-17 16:18] LABS: Barbiturates NEGATIVE (NEGATIVE); Benzodiazepines NEGATIVE (NEGATIVE); Cocaine NEGATIVE (NEGATIVE); METHAMPHETAM NEGATIVE (NEGATIVE); Methadone NEGATIVE (NEGATIVE); Opiates NEGATIVE (NEGATIVE); Phencyclidine NEGATIVE (NEGATIVE); THC Cannibis NEGATIVE (NEGATIVE)
--- NOTE | 2023-05-17 17:04 | EDPHYS ---
Physician Documentation [facility] Name: Cece Bush Age: 37 yrs Sex: Female : 1985 Arrival Date: 05/17/2023 Time: 13:12 Bed 15 Private MD: ED Physician Piper Juarez HPI: 05/17 14:10 This 37 yrs old Female presents to ER via Ambulatory with complaints of Headache. cp 14:10 The patient complains of pain to the top of head and forehead. The patient describes cp the headache as aching, constant. 14:10 Patient is a 37-year-old female who returns to the emergency department with complaints cp of persistent headache that she has had since being seen here on May 13, 2023. At that visit patient was seen here in this emergency department after reported seizure while at work. Patient reports she was started on Keppra but had to discontinue the medication due to a rash that she developed. Patient denies any seizure type activity since that date and reports that the only other time she has had seizures for several years prior to this past one. Historical: - Allergies: 14:01 Morphine; aa5 14:01 tramadol; aa5 - Home Meds: 14:01 venlafaxine oral [Active]; Suboxone [Active]; aa5 - PMHx: 14:01 Depression; PTSD; Seizures; aa5 - PSHx: 14:01 left leg with metal; aa5 - Immunization history:: Adult Immunizations unknown. - Social history:: Smoking status: Patient reports the use of cigarette tobacco products. ROS: 14:15 Constitutional: Negative for body aches, chills, fever, poor PO intake, cp 14:15 Cardiovascular: Negative for chest pain, palpitations, cp 14:15 Respiratory: Negative for cough, shortness of breath, wheezing, 14:15 Abdomen/GI: Positive for nausea, Negative for abdominal pain, vomiting, diarrhea, constipation, 14:15 Eyes: Negative for injury, pain, redness, and discharge, cp 14:15 ENT: Negative for drainage from ear(s), ear pain, sore throat, difficulty swallowing, difficulty handling secretions, 14:15 Neck: Positive for pain with movement, pain at rest, tenderness, 14:15 Back: Negative for pain at rest, pain with movement, cp 14:15 : Negative for urinary symptoms, 14:15 Neuro: Positive for dizziness, headache, Negative for altered mental status, seizure activity, 14:15 All other systems are negative, Exam: 14:20 Constitutional: The patient appears in no acute distress, alert, awake, cp non-diaphoretic, non-toxic, well developed, well nourished, uncomfortable, 14:20 Eyes: Periorbital structures: appear normal, Pupils: equal, round, and reactive to cp light and accomodation, Extraocular movements: intact throughout, Conjunctiva: normal, no exudate, no injection, Sclera: no appreciated abnormality, Lids and lashes: appear normal, bilaterally, 14:20 ENT: External ear(s): are unremarkable, Ear canal(s): are normal, clear, TM's: dullness, bilaterally, Nose: is normal, Mouth: Lips: moist, Oral mucosa: pink and intact, moist, Posterior pharynx: is normal, airway is patent, no erythema, no exudate, 14:20 Neck: C-spine: vertebral tenderness, is not appreciated, crepitus, is not appreciated, ROM/movement: pain, that is mild, with any movement, 14:20 Head/face: Noted is contusion, that is superficial, of the left frontal area, left cp side of the back of head, left temporal area and left occipital area, ecchymosis, that is mild, of the left frontal area, left side of the back of head, left temporal area and left occipital area, 14:20 Chest/axilla: Inspection: normal, 14:20 Cardiovascular: Rate: normal, Rhythm: regular, 14:20 Respiratory: the patient does not display signs of respiratory distress, Respirations: normal, no use of accessory muscles, no retractions, labored breathing, is not present, Breath sounds: are clear throughout, no decreased breath sounds, no stridor, no wheezing, 14:20 Abdomen/GI: Inspection: abdomen appears normal, Palpation: abdomen is soft and non-tender, in all quadrants, 14:20 Back: pain, is absent, ROM is normal, 14:20 Neuro: Orientation: to person, place \T\ time. Mentation: is normal, Cerebellar function: cp is grossly normal, Motor: moves all fours, strength is normal, Sensation: is normal, Gait: is steady, Vital Signs: 13:55 BP 167 / 105; Pulse 89; Resp 18 S; Temp 99(TE); Pulse Ox 97% on R/A; Weight 77.11 kg aa5 (R); Height 5 ft. 2 in. (R); 15:25 BP 143 / 102; Pulse 95; Resp 18; Pulse Ox 100% on R/A; mb9 17:15 BP 138 / 97; Pulse 90; Resp 18; Pulse Ox 100% on R/A; mb9 13:55 Body Mass Index 31.09 (77.11 kg, 157.48 cm) aa5 MDM: 14:02 Patient medically screened. cp 17:02 Data reviewed: vital signs, nurses notes, lab test result(s), EKG, radiologic studies, cp CT scan. 17:02 Differential diagnosis: hypertensive headache, intracerebral hemorrhage, meningitis, cp meningoencephalitis, migraine, neoplasm, subarachnoid bleed, subdural hematoma. I considered the following discharge prescriptions or medication management in the emergency department Medications were administered in the Emergency Department. See MAR. Counseling: I had a detailed discussion with the patient and/or guardian regarding the historical points, exam findings, and any diagnostic results supporting the discharge/admit diagnosis, lab results, radiology results, the need for outpatient follow up, for definitive care, a neurologist, to return to the emergency department if symptoms worsen or persist or if there are any questions or concerns that arise at home. Response to treatment: the patient's symptoms have markedly improved after treatment, and as a result, I will discharge patient. Special discussion: Based on the patient's history, exam and DX evaluation, there is no indication for emergent intervention or inpatient TX. It is understood by the patient/guardian that if the SXs persist or worsen they need to return immediately for re-evaluation. 05/17 14:03 Order name: Acetaminophen; Complete Time: 16:24 cp 05/17 14:03 Order name: Basic Metabolic Panel; Complete Time: 16:24 cp 05/17 16:24 Interpretation: Normal except: NA 135. cp 05/17 14:03 Order name: CBC with Diff; Complete Time: 15:10 cp 05/17 15:10 Interpretation: Normal except: MPV 6.7. cp 05/17 14:03 Order name: ETOH Level; Complete Time: 16:24 cp 05/17 14:03 Order name: Hepatic Function; Complete Time: 16:24 05/17 16:24 Interpretation: Normal except: ALB 3.1; GLOB 3.6; A/G 0.9. 05/17 14:03 Order name: PT-INR; Complete Time: 16:24 05/17 14:03 Order name: Test, Urine; Complete Time: 16:24 05/17 16:24 Interpretation: Reviewed. 05/17 14:03 Order name: Ptt, Activated; Complete Time: 16:24 05/17 14:03 Order name: Salicylate; Complete Time: 15:10 05/17 14:03 Order name: Urinalysis w/ reflexes; Complete Time: 16:24 05/17 14:03 Order name: Urine Drug Screen; Complete Time: 16:24 05/17 14:29 Order name: CT Head C Spine; Complete Time: 15:10 05/17 14:03 Order name: EKG; Complete Time: 14:04 05/17 14:03 Order name: EKG - Nurse/Tech; Complete Time: 14:19 05/17 14:03 Order name: IV Saline Lock; Complete Time: 14:18 05/17 14:03 Order name: Labs collected and sent; Complete Time: 14:18 05/17 14:03 Order name: Suicide Screening ([place]); Complete Time: 15:25 05/17 14:35 Order name: Labs - recollect needed: recollect blue and light green hemolyzed per lab; eb Complete Time: 15:05 Administered Medications: 15:12 Drug: Dexamethasone IVP 10 mg IVP once; (not to exceed 40 mg) Route: IVP; Site: right hb antecubital; 17:23 Follow up: Response: No adverse reaction mb9 15:12 Drug: Ondansetron IVP 4 mg IVP once; over 2 minutes Route: IVP; Site: right antecubital;hb 17:23 Follow up: Response: No adverse reaction mb9 15:13 Drug: metoCLOPramide IVP 10 mg IVP once; over 1 to 2 minutes Route: IVP; Site: right hb antecubital; 17:23 Follow up: Response: No adverse reaction mb9 15:13 Drug: diphenhydrAMINE IVP 25 mg IVP once Route: IVP; Site: right antecubital; hb 17:23 Follow up: Response: No adverse reaction mb9 Disposition Summary: 05/17/23 17:03 Discharge Ordered Notes: Location: Home cp Problem: new cp Symptoms: have improved cp Condition: Stable cp Diagnosis - Acute post-traumatic headache cp Followup: cp - With: Mickey Willard MD - When: 2 - 3 days - Reason: Recheck today's complaints Discharge Instructions: - Discharge Summary Sheet cp - Head Injury, Adult cp - Migraine Headache cp Forms: - Medication Reconciliation Form cp - Thank You Letter cp - Antibiotic Education cp - Prescription Opioid Use cp - Patient Portal Instructions cp - Leadership Thank You Letter cp - Work release form Prescriptions: - Fioricet 50-300-40 mg Oral capsule - take 1 capsule ORAL route every 6 hours as needed for pain; 20 capsule; cp Refills: 0, Product Selection Permitted - venlafaxine 75 mg Oral Capsule, ER 24 hr - take 3 capsule ORAL route every day at bedtime; 90 capsule; Refills: 0, Product cp Selection Permitted - Reglan 10 mg Oral Tablet - take 1 tablet ORAL route every 6 hours take 30 minutes before meals and at cp bedtime; 20 tablet; Refills: 0, Product Selection Permitted Signatures: Dispatcher [employer] EDValerie Mcguire, RN RN aa5 Jad Caballero PA PA Claire Bonilla, RN RN Nicole Ramirez Mary Beth RN mb9 Corrections: (The following items were deleted from the chart) 17:03 17:03 Headache cp cp 05/18 17:03 05/17 14:15 Neuro: Positive for dizziness, headache, Negative for altered mental cp status, seizure activity, weakness, cp 05/18 17:12 05/17 14:20 Head/Face: Normocephalic, atraumatic. cp cp
--- NOTE | 2023-05-17 17:04 | ER ---
Nurse's Notes [facility] Name: Cece Bush Age: 37 yrs Sex: Female : 1985 Arrival Date: 05/17/2023 Time: 13:12 Bed 15 Private MD: Diagnosis: Acute post-traumatic headache Presentation: 05/17 13:55 Chief complaint: Pt's mother states "she was here after a seizure and she has not aa5 gotten any better, her headache is bad". 13:55 Coronavirus screen: headache. Ebola Screen: Patient denies travel to an Ebola-affected [place] area in the 21 days before illness onset. Onset of symptoms was May 2023. 13:55 Acuity: YAAKOV 3 aa 13:55 Method Of Arrival: Ambulatory aa 13:55 Risk Assessment: Do you want to hurt yourself or someone else? Patient reports no aa5 desire to harm self or others. Historical: - Allergies: 14:01 Morphine; aa5 14:01 tramadol; aa5 - Home Meds: 14:01 venlafaxine oral [Active]; Suboxone [Active]; aa5 - PMHx: 14:01 Depression; PTSD; Seizures; aa5 - PSHx: 14:01 left leg with metal; aa5 - Immunization history:: Adult Immunizations unknown. - Social history:: Smoking status: Patient reports the use of cigarette tobacco products. Screenin:15 [facility] ED Fall Risk Assessment (Adult) History of falling in the last 3 months, mb9 including since admission No falls in past 3 months (0 pts) Confusion or Disorientation No (0 pts) Intoxicated or Sedated No (0 pts) Impaired Gait No (0 pts) Mobility Assist Device Used No (0 pt) Altered Elimination No (0 pt) Score/Fall Risk Level 0 - 2 = Low Risk Oriented to surroundings, Maintained a safe environment, Educated pt \\T\\ family on fall prevention, incl call for assistance when getting out of bed. Abuse screen: Denies threats or abuse. Nutritional screening: No deficits noted. Tuberculosis screening: No symptoms or risk factors identified. Assessment: 14:23 General: Appears in no apparent distress. Behavior is calm, cooperative. Pain: mb9 Complains of pain in head Pain does not radiate. Pain currently is 8 out of 10 on a pain scale. Quality of pain is described as throbbing, Pain began suddenly, Is continuous. Neuro: Summers Agitation-Sedation Scale (RASS): 0 - Alert and Calm Level of Consciousness is awake, alert, obeys commands, Oriented to person, place, time, situation, Appropriate for age. Cardiovascular: Patient's skin is warm and dry. Rhythm is regular. Respiratory: Airway is patent Respiratory effort is even, unlabored, Respiratory pattern is regular, symmetrical, Breath sounds are clear bilaterally. GI: No signs and/or symptoms were reported involving the gastrointestinal system. : No signs and/or symptoms were reported regarding the genitourinary system. Derm: Skin is pink, warm \\T\\ dry. Musculoskeletal: Range of motion: intact in all extremities. 16:02 Reassessment: Patient and/or family updated on plan of care and expected duration. Pain mb9 level reassessed. Patient is alert, oriented x 3, equal unlabored respirations, skin warm/dry/pink. Patient states feeling better. Patient states symptoms have improved. 17:15 Reassessment: Patient and/or family updated on plan of care and expected duration. Pain mb9 level reassessed. Patient is alert, oriented x 3, equal unlabored respirations, skin warm/dry/pink. Patient states feeling better. Patient states symptoms have improved. Vital Signs: 13:55 BP 167 / 105; Pulse 89; Resp 18 S; Temp 99(TE); Pulse Ox 97% on R/A; Weight 77.11 kg aa5 (R); Height 5 ft. 2 in. (R); 15:25 BP 143 / 102; Pulse 95; Resp 18; Pulse Ox 100% on R/A; mb9 17:15 BP 138 / 97; Pulse 90; Resp 18; Pulse Ox 100% on R/A; mb9 13:55 Body Mass Index 31.09 (77.11 kg, 157.48 cm) aa5 ED Course: 13:14 Patient arrived in ED. mr 13:17 Jad Caballero PA is PHCP. cp 13:17 Piper Juarez MD is Attending Physician. cp 13:55 Arm band placed on. aa5 14:00 Triage completed. aa5 14:05 Peg Larose RN is Primary Nurse. mb9 14:18 Inserted saline lock: 20 gauge in right antecubital area, using aseptic technique. zm Blood collected. 14:18 Acetaminophen Sent. zm 14:18 Basic Metabolic Panel Sent. zm 14:18 CBC with Diff Sent. zm 14:18 ETOH Level Sent. zm 14:18 Hepatic Function Sent. zm 14:18 PT-INR Sent. zm 14:19 Ptt, Activated Sent. zm 14:19 Salicylate Sent. zm 14:24 Placed in gown. Bed in low position. Call light in reach. Side rails up X 1. Client mb9 placed on continuous cardiac and pulse oximetry monitoring. NIBP monitoring applied. physics teacher on. 14:24 EKG done, by ED staff, reviewed by Piper Juarez MD. mb9 14:44 CT Head C Spine In Process Unspecified. EDNM 17:03 Mickey Willard MD is Referral Physician. cp 17:16 No provider procedures requiring assistance completed. IV discontinued, intact, mb9 bleeding controlled, No redness/swelling at site. Pressure dressing applied. Administered Medications: 15:12 Drug: Dexamethasone IVP 10 mg IVP once; (not to exceed 40 mg) Route: IVP; Site: right hb antecubital; 17:23 Follow up: Response: No adverse reaction mb9 15:12 Drug: Ondansetron IVP 4 mg IVP once; over 2 minutes Route: IVP; Site: right antecubital;hb 17:23 Follow up: Response: No adverse reaction mb9 15:13 Drug: metoCLOPramide IVP 10 mg IVP once; over 1 to 2 minutes Route: IVP; Site: right hb antecubital; 17:23 Follow up: Response: No adverse reaction mb9 15:13 Drug: diphenhydrAMINE IVP 25 mg IVP once Route: IVP; Site: right antecubital; hb 17:23 Follow up: Response: No adverse reaction mb9 Medication: 17:16 VIS not applicable for this client. mb9 Outcome: 17:03 Discharge ordered by . cp 17:23 Discharged to home ambulatory, with family, mb9 17:23 Condition: stable 17:23 Discharge instructions given to patient, Instructed on discharge instructions, follow up and referral plans. Demonstrated understanding of instructions, follow-up care, medications, Prescriptions given X 3, 17:24 Patient left the ED. mb9 Signatures: Dispatcher [employer] EDPeg Crowder, Reg Reg mr ChavezValerie RN RN aa5 Jad Caballero PA PA cp Baxter, Heather, RN RN Lea Arroyo Mary Beth, HIRAL RN mb9 Corrections: (The following items were deleted from the chart) 14:04 13:55 Resp 18bpm; Spontaneous; Temp 99F Temporal; 77.11 kg Reported; Height 5 ft. 2 in. aa5 Reported; BMI: 31.0; aa5
[2023-05-17 22:14] VITALS: BP 138/97; TEMP 99; O2SAT 100
--- NOTE | 2023-05-20 17:07 | EKG ---
Test Date: 2023-05-17 Test Time: 14:19:28 [employer]: MB MEASUREMENT RESULTS: Intervals: Rate: 89 UT: 124 QRSD: 90 QT: 360 QTc: 438 [place]: P: 71 UT: 124 QRS: 59 T: 56 INTERPRETIVE STATEMENTS: Normal sinus rhythm with sinus arrhythmia Possible Left atrial enlargement RSR' or QR pattern in V1 suggests right ventricular conduction delay Borderline ECG Compared to ECG 05/13/2023 14:39:40 RSR' in V1 or V2 now present Sinus tachycardia no longer present Electronically Signed On 05-20-23 16:59:49 [employer] by Goldy Abrams
== END ==
LOC: ER 13:12
DX: G44.319 Acute post-traumatic headache, not intractable (principal); Z88.5 Allergy status to narcotic agent; Z72.0 Tobacco use
CPT/HCPCS: 93005; 85025; 81001; 80048; 36415; 81025; 85610; 80076; 85730; 80307; 70450; 72125; 96375; 96374; 99285; 80143; 80179; 82077; J2765; J1200; J1100; J2405